=== PATIENT | male | born 1965 | race Caucasian/White ===

== ENCOUNTER 2017-05-23 09:43 | Emergency (ER) | payer MEDICARE ==
[2017-05-23] MEDS ORDERED: Norflex 60 MG/2 ML IM ONE (10:15)
[2017-05-23] MEDS ORDERED: TORAdol 30 mg Injection IM ONE (10:15)
[2017-05-23] MEDS ORDERED: TORAdol 30 mg Injection ONE (10:19)
[2017-05-23] MEDS ORDERED: Norflex 60 MG/2 ML ONE (10:20)
--- NOTE | 2017-05-23 10:21 | ERPHSYRPT ---
- History of Present Illness Time Seen by Provider: 05/23/17 09:57 Source: patient Patient Subjective Stated Complaint: pt here for lower back pain after lifting furniture, Triage Nursing Assessment: pt walked in, resp easy, sin w/d,alert, no brusiing or swelling noted Physician History: CC: back pain hx: 51 y/o patient of Dr Delgado planning to see Dr Cook pain specialist in [place]. He has hx of back problems. No prior surgeries. He was lifting furniture yesterday and twisted back. Pain worsened over night. No N/T/W. Normal urination. No incontinence. No hx of cancer. No fever. He does not currently take any pain medications. No abd pain. Pain moderately severe. Back Pain Location: lumbar spine Severity of Pain-Max: severe Severity of Pain-Current: severe Allergies/Adverse Reactions: No Known Drug Allergies Allergy (Verified 05/23/17 10:05) Hx Influenza Vaccination/Date Given: No Hx Pneumococcal Vaccination/Date Given: No Immunizations Up to Date: Yes - Review of Systems Constitutional: No Fever, No Chills Respiratory: No Dyspnea Cardiac: No Chest Pain Abdominal/Gastrointestinal: No Abdominal Pain, No Nausea, No Vomiting Genitourinary Symptoms: No Dysuria Musculoskeletal: No Back Pain, No Fall Neurological: No Focal Weakness, No Headache, No Parasthesia All Other Systems: Reviewed and Negative - Past Medical History Pertinent Past Medical History: No - Past Surgical History Past Surgical History: Yes Other Surgical History: elbow,kidney stone removal - Social History Smoking Status: Never smoker Exposure to second hand smoke: No Drug Use: none Patient Lives Alone: No - Nursing Vital Signs Nursing Vital Signs: Initial Vital Signs Temperature 97.8 F 05/23/17 09:58 Pulse Rate 78 05/23/17 09:58 Respiratory Rate 16 05/23/17 09:58 Blood Pressure 165/125 05/23/17 09:58 O2 Sat by Pulse Oximetry 97 05/23/17 09:58 Pain Scale Pain Intensity [Back] 6 Pain Intensity 6 - Physical Exam General Appearance: alert, other (large tall man) Eye Exam: PERRL/EOMI Ears, Nose, Throat Exam: normal ENT inspection, moist mucous membranes Neck Exam: normal inspection, non-tender, supple Respiratory Exam: normal breath sounds, lungs clear Cardiovascular Exam: regular rate/rhythm Gastrointestinal Exam: soft, No tenderness, No distention Male Genetalia Exam: normal genitalia Back Exam: normal inspection, point tenderness (diffuse low back) Extremity Exam: normal inspection, normal range of motion Neurologic Exam: alert, oriented x 3, cooperative, sensation nml, No motor deficits Skin Exam: warm, dry, No rash SpO2 Interpretation: normal SpO2: 97 Oxygen Delivery: Room Air - Course Nursing assessment & vital signs reviewed: Yes Ordered Tests: Medication Summary Generic Name Dose Route Start Last Admin Trade Name Freq PRN Reason Stop Dose Admin Ketorolac Tromethamine 60 mg 05/23/17 10:15 Toradol 30 Mg Injection IM 05/23/17 10:16 STAT ONE Orphenadrine Citrate 60 mg 05/23/17 10:15 Norflex 60 Mg/2 Ml IM 05/23/17 10:16 STAT ONE - Progress Progress Note: 05/23/17 10:18 No red flag symptoms. Advised he follow up with pain management as planned. IM Toradol and norflex given here. Advised no driving. 05/23/17 10:19 Inital BP was elevated but too small cuff improperly placed. Will recheck. Advised also to recheck BP with Dr Delgado. Counseled pt/family regarding: diagnosis, need for follow-up - Departure Time of Disposition: 10:19 Departure Disposition: Home Clinical Impression: Acute exacerbation of chronic low back pain Condition: Stable Critical Care Time: No Referrals: SHALINI DELGADO [Primary Care Provider] - Instructions: Low Back Pain Additional Instructions: BACK INJURY 1. May apply moist heat frequently for relief of pain. Take care not to burn the skin. Do not use heat for more than 30 minutes at a time. 2. Try to sleep on a firm bed, flat on your back. 3. If no improvement is noticed in 2-3 days, follow up with your family physician. 4. If you notice any numbness, tingling, weakness, or problems with your bowel or bladder, you should call your family physician or return to the emergency department. No driving today or while taking norflex. Rx norflex. Rx ibuprofen. Recheck blood pressure with Dr delgado. Prescriptions: Ibuprofen 600 mg PO Q6H PRN PRN #20 tablet PRN Reason: Pain Orphenadrine Citrate 100 mg [Norflex 100 MG Tablet] 1 tab PO BID #10 tab
[2017-05-23 10:34] VITALS: O2SAT 96
[2017-05-23 11:05] VITALS: BP 131/71; PULSE 88
== END 2017-05-23 11:03 | disposition home or self-care (01) ==
LOC: ED 09:43
DX: M54.5 Low back pain (principal)
CPT/HCPCS: 99282; 99284; J1885; J2360